=== PATIENT | male | born 1955 | race Caucasian/White ===

== ENCOUNTER 2019-01-28 21:47 | Emergency (ER) | payer MEDICARE, MEDICAID ==
[2019-01-28 21:47] VITALS: BMI 29.0
[2019-01-28 22:02] VITALS: RESP 18; TEMP 97.6
[2019-01-28] MEDS ORDERED: Sodium Chloride 0.9% 1,000 ML IV STA (23:00)
[2019-01-28 23:24] LABS: BASO % 0.1 % (0.0-2.0); EOS % 0.2 % (0.0-4.0); HEMOGLOBIN 13.5 g/dL (12.0-18.0); LYMPH # 0.6 K/uL (1.0-4.3); LYMPH % 10.9 % (20.0-40.0); MEAN CELL VOLUME 109.8 fl (80.0-94.0); MEAN CORPUSCULAR HEMOGLOBIN 36.1 pg (27.0-31.0); MEAN CORPUSCULAR HGB CONC 32.9 g/dL (33.0-37.0); MEAN PLATELET VOLUME 8.8 fl (7.2-11.7); MONO # 0.6 K/uL (0.0-0.8); MONO % 11.7 % (0.0-10.0); NEUT # 4.1 K/uL (1.8-7.0); NEUT % 77.1 % (50.0-75.0); NRBC % 0.1 % (0.0-0.0); RBC 3.75 Mil/uL (4.40-5.90); RED CELL DISTRIBUTION WIDTH 15.6 % (11.5-14.5); WHITE BLOOD COUNT 5.4 K/uL (4.8-10.8)
[2019-01-28 23:28] LABS: SQUAMOUS EPITHIAL 2 /hpf (0-5); URINE BILIRUBIN SMALL (NEGATIVE); URINE BLOOD NEGATIVE (NEGATIVE); URINE CLARITY CLOUDY (Clear); URINE COLOR AMBER (YELLOW); URINE GLUCOSE (UA) NEG (NEGATIVE); URINE LEUKOCYTE ESTERASE NEG Leu/uL (Negative); URINE PROTEIN 100 mg/dL (NEGATIVE)
[2019-01-28 23:32] LABS: ALB/GLOB RATIO 1.1 (1.0-2.1); ALT/SGPT 84 U/L (21-72); AST/SGOT 67 U/L (17-59); BLOOD UREA NITROGEN 22 mg/dl (9-20); CALCIUM 8.6 mg/dL (8.4-10.2); GFR NON-AFRICAN AMERICAN > 60; LIPASE 82 U/L (23-300)
--- NOTE | 2019-01-28 23:44 | ED PDOC ---
HPI:Nausea, Vomiting, Diarrhea Time Seen by Provider: 01/28/19 22:01 Chief Complaint (Nursing): GI Problem Chief Complaint (Provider): GI Problem History Per: Patient History/Exam Limitations: no limitations Onset/Duration Of Symptoms: Days (x 4) Current Symptoms Are (Timing): Still Present Associated Symptoms: Vomiting, Diarrhea Additional Complaint(s): 63 year old male with a history of multiple myeloma presents to the ED for evaluation of multiple episodes of non bloody, non bilious vomiting and diarrhea for four days. Patient is unable to tolerate PO. Denies abdominal pain, fever, chills, and recent travel. PMD: [facility] ([facility]) Past Medical History Reviewed: Historical Data, Nursing Documentation, Vital Signs Vital Signs: Last Vital Signs Temp 97.6 F 01/28/19 22:00 Pulse 89 01/28/19 22:00 Resp 18 01/28/19 22:00 BP 146/83 01/28/19 22:00 Pulse Ox 94 L 01/28/19 22:00 - Medical History PMH: Malignancy (multiple myeloma) Denies: Pulmonary Embolism, Chronic Kidney Disease - Surgical History Other surgeries: tumor removal on spine and left hip - Family History Family History: States: Unknown Family Hx - Social History Current smoker - smoking cessation education provided: No Alcohol: None Drugs: Denies - Immunization History Hx Tetanus Toxoid Vaccination: Yes Hx Influenza Vaccination: Yes Hx Pneumococcal Vaccination: Yes - Home Medications Home Medications: Ambulatory Orders Medication Instructions Recorded Ondansetron ODT [Zofran ODT] 1 odt PO TID PRN #12 odt 05/11/14 Oxycontin 40 mg PO TID 05/11/14 oxyCODONE 5 mg PO Q4H PRN 05/11/14 Dicyclomine [Bentyl] 20 mg PO Q12 PRN #20 tab 01/29/19 Ondansetron ODT [Zofran ODT] 4 mg PO Q6 PRN #8 odt 01/29/19 - Allergies Allergies/Adverse Reactions: Allergies Allergy/AdvReac Type Severity Reaction Status Date / Time No Known Allergies Allergy Verified 01/28/19 22:00 Review of Systems ROS Statement: Except As Marked, All Systems Reviewed And Found Negative Constitutional: Negative for: Fever, Chills Cardiovascular: Negative for: Chest Pain Respiratory: Negative for: Cough Gastrointestinal: Positive for: Vomiting, Diarrhea. Negative for: Abdominal Pain, Constipation Physical Exam - Reviewed Nursing Documentation Reviewed: Yes Vital Signs Reviewed: Yes - Physical Exam Appears: Positive for: No Acute Distress Head Exam: Positive for: ATRAUMATIC, NORMAL INSPECTION, NORMOCEPHALIC Skin: Positive for: Normal Color, Warm, Dry. Negative for: Rash Eye Exam: Positive for: EOMI, Normal appearance, PERRL ENT: Positive for: Other (dry mucous membranes) Neck: Positive for: Normal, Painless ROM, Supple Cardiovascular/Chest: Positive for: Regular Rate, Rhythm. Negative for: Murmur Respiratory: Positive for: Normal Breath Sounds. Negative for: Wheezing, Respiratory Distress Gastrointestinal/Abdominal: Positive for: Normal Exam, Soft. Negative for: Tenderness, Mass, Guarding Back: Positive for: Normal Inspection. Negative for: L CVA Tenderness, R CVA Tenderness Extremity: Positive for: Normal ROM (upper and lower extremities). Negative for: Deformity Neurological/Psych: Positive for: Awake, Alert, Normal Tone, Oriented. Negative for: Motor/Sensory Deficits - Laboratory Results Result Diagrams: 01/28/19 23:21 01/28/19 23:21 Lab Results: Total Bilirubin 0.5 mg/dl (0.2-1.3) 01/28/19 23:21 AST 67 U/L (17-59) H 01/28/19 23:21 ALT 84 U/L (21-72) H 01/28/19 23:21 Alkaline Phosphatase 68 U/L (38-126) 01/28/19 23:21 Total Protein 7.7 G/DL (6.3-8.2) 01/28/19 23:21 Albumin 4.0 g/dL (3.5-5.0) 01/28/19 23:21 Globulin 3.6 gm/dL (2.2-3.9) 01/28/19 23:21 Albumin/Globulin Ratio 1.1 (1.0-2.1) 01/28/19 23:21 Lipase 82 U/L (23-300) 01/28/19 23:21 Urine Color Magaly (YELLOW) 01/28/19 23:21 Urine Clarity Cloudy (Clear) 01/28/19 23:21 Urine pH 5.0 (5.0-8.0) 01/28/19 23:21 Ur Specific Sherman 1.034 (1.003-1.030) H 01/28/19 23:21 Urine Protein 100 mg/dL (NEGATIVE) 01/28/19 23:21 Urine Glucose (UA) Neg mg/dL (NEGATIVE) 01/28/19 23:21 Urine Ketones Trace mg/dL (NEGATIVE) 01/28/19 23:21 Urine Blood Negative (NEGATIVE) 01/28/19 23: Urine Nitrate Negative (NEGATIVE) 01/28/19: Urine Bilirubin Small (NEGATIVE) 01/28/19 23: Urine Urobilinogen 4.0 mg/dL (0.2-1.0) 01/28/19 23:21 Ur Leukocyte Esterase Neg Francy/uL (Negative) 01/28/19: Urine RBC (Auto) 5 /hpf (0-3) H 01/28/19 23:21 Urine Microscopic WBC 6 /hpf (0-5) H 01/28/19 23:21 Ur Squamous Epith Cells 2 /hpf (0-5) 01/28/19: Hyaline Casts 6-10 /hpf (0-2) H 01/28/19 23:21 - ECG O2 Sat by Pulse Oximetry: 94 (RA) Pulse Ox Interpretation: Normal Medical Decision Making Medical Decision Makin:49 Impression: 63 year old male with acute gastroenteritis Initial Plan: --CBC --CMP --Lipase --UA --Urine dip --EKG --Bentyl 20 mg PO --NS IV 1,000 mls --Zofran 4 mg IV 03:07 Labs reviewed and reveal no clinically significant abnormalities. Patient reports marked improvement of symptoms and is stable for discharge. Diagnosis is gastroenteritis. --- Scribe Attestation: Documented by Staci García, acting as a scribe Alonso Waterman MD. Provider Scribe Attestation: All medical record entries made by the Scribe were at my direction and personally dictated by me. I have reviewed the chart and agree that the record accurately reflects my personal performance of the history, physical exam, medical decision making, and the department course for this patient. I have also personally directed, reviewed, and agree with the discharge instructions and disposition. Disposition - Clinical Impression Clinical Impression: Gastroenteritis - Patient ED Disposition Is Patient to be Admitted: No - Disposition Disposition: Routine/Home Disposition Time: 03:07 Condition: STABLE Prescriptions: Dicyclomine [Bentyl] 20 mg PO Q12 PRN #20 tab PRN Reason: abdominal pain/diarrhea Ondansetron ODT [Zofran ODT] 4 mg PO Q6 PRN #8 odt PRN Reason: Nausea/Vomiting Instructions: Viral Gastroenteritis Forms: [facility] (Kyrgyz) Print Language: SWEDISH
[2019-01-29 03:00] VITALS: BP 106/68; PULSE 81
[2019-01-29 03:54] VITALS: O2SAT 94
--- NOTE | 2019-01-29 18:38 | CARD ---
APPROVED REPORT Date of service: 01/29/2019 EKG Measurement Heart [id number] <Conclusion> Normal sinus rhythm Minimal voltage criteria for LVH, may be normal variant Inferior infarct, age undetermined Abnormal ECG
== END 2019-01-29 03:08 | disposition home or self-care (01) ==
LOC: H.ER 21:47
DX: K52.9 Noninfective gastroenteritis and colitis, unspecified (principal)
CPT/HCPCS: 80053; 81003; 83690; 85025; 93005; 96360; 99284; J2405; J7030